=== PATIENT | female | born 1985 ===

== ENCOUNTER → 2019-09-30 | Outpatient (CLI) | payer BC | LOC: ZCOL.LAB 17:51 | DX: Z20.828 Contact with and (suspected) exposure to other viral communicable diseases (principal) ==

== ENCOUNTER 2021-03-19 12:57 | Outpatient (CLI) | payer BC ==
[2021-03-19 13:15] VITALS: BP 135/77; PULSE 81; TEMP 98.7
[2021-03-19 13:30] VITALS: BP 143/75; PULSE 82; TEMP 98.7
[2021-03-19] MEDS ORDERED: SYNTHROID0.05 MG/TA PO (13:39)
[2021-03-19] MEDS ORDERED: GLUCOPHAGE500 MG/TAB PO (13:39)
[2021-03-19] MEDS ORDERED: PHENERGAN 25 TA25 MG PO (13:39)
[2021-03-19 13:45] VITALS: BP 132/71; PULSE 88; TEMP 98.7
[2021-03-19 14:00] VITALS: BP 115/70; PULSE 74; TEMP 98.7
[2021-03-19 14:15] VITALS: BP 117/75; PULSE 78; TEMP 98.7
[2021-03-19 14:30] VITALS: BP 118/77; PULSE 75; TEMP 98.7
== END 2021-03-19 14:40 | disposition home or self-care (01) ==
LOC: EUO 12:57
DX: U07.1 COVID-19 (principal)
CPT/HCPCS: M0247; Q0247

== ENCOUNTER 2021-07-10 02:55 | Emergency (ER) | payer BC, OTHER ==
[~2021-07-10] VITALS: Ht 175.3 cm; Wt 90.9 kg
[~2021-07-10 02:55] MED LIST: GLUCOPHAGE500 MG/TAB PO; PHENERGAN 25 TA25 MG PO; SYNTHROID0.05 MG/TA PO
[2021-07-10 03:01] VITALS: TEMP 98.8
[2021-07-10 03:16] LABS: BASO % 0.4 % (0.0-2.0); EOS # 0.1 K/mm3 (0.0-0.7); EOS % 1.2 % (0.0-4.0); GRAN # 5.4 K/mm3 (1.4-6.5); GRAN % 58.5 % (42.2-75.2); HEMOGLOBIN 12.8 g/dl (12.5-16.0); LYMPH # 2.8 K/mm3 (1.2-3.4); LYMPH % 30.1 % (20.0-51.0); MEAN CELL VOLUME 81 fl (80.0-100.0); MEAN CORPUSCULAR HEMOGLOBIN 27 pg (27-31); MEAN CORPUSCULAR HGB CONC 34 g/dl (33.0-37.0); MEAN PLATELET VOLUME 10.6 fl (7.4-10.4); MONO # 0.9 K/mm3 (0.1-0.6); MONO % 9.5 % (1.7-9.3); PLATELET COUNT 303 K/mm3 (130-400); RED BLOOD COUNT 4.67 M/mm3 (4.10-5.30); REDCELL DISTRIBUTION WIDTH-CV 12.8 % (11.5-14.5)
[2021-07-10 03:46] LABS: ALANINE AMINOTRANSFERASE 23 U/L (0-55); ALBUMIN 4.2 gm/dL (3.5-5.0); ALKALINE PHOSPHATASE 89 U/L (40-150); ANION GAP 9 mmol/L (7-16); AST,SGOT 17 U/L (5-34); BILIRUBIN,TOTAL 0.3 mg/dL (0.2-1.2); CALCIUM 9.2 mg/dL (8.4-10.2); CARBON DIOXIDE 25 mmol/L (22-29); CHLORIDE 104 mmol/L (98-107); GLUCOSE 96 mg/dL (70-99); LIPASE 30 U/L (8-78); POTASSIUM 3.6 mmol/L (3.5-4.5); SODIUM 138 mmol/L (136-145); TOTAL PROTEIN 7.7 gm/dL (6.2-8.1)
[2021-07-10 03:47] LABS: BLOOD UREA NITROGEN 10 mg/dL (7-19)
[2021-07-10 03:53] LABS: TROPONIN-I < 0.010 ng/mL (0.00-0.033)
[2021-07-10 04:12] LABS: COLLECTION METHOD CLEAN CATCH
[2021-07-10 04:19] LABS: PH 6 (5-8); SQUAMOUS EPITHELIAL 0-2 /hpf (0-10); URINE APPEARANCE Clear (CLEAR/HAZY); URINE BACTERIA Rare /hpf (NONE SEEN); URINE BILIRUBIN Negative (NEGATIVE); URINE BLOOD 3+ (NEGATIVE); URINE COLOR Straw (YELLOW); URINE GLUCOSE Negative (NEGATIVE); URINE KETONE Negative (NEGATIVE); URINE LEUKOCYTE ESTERASE Negative (NEGATIVE); URINE NITRATE Negative (NEGATIVE); URINE PROTEIN(semi-quant) Negative (NEGATIVE); URINE RBC 20-50 /hpf (0-2); URINE UROBILINOGEN Negative (NEGATIVE)
[2021-07-10] MEDS ORDERED: PEPCID 20MG TAB20 MG PO (04:26)
[2021-07-10 04:39] VITALS: BP 126/81; PULSE 56
== END 2021-07-10 04:39 | disposition home or self-care (01) ==
LOC: COL.ER 02:55
PROVIDERS: Emergency Medicine
DX: R10.13 Epigastric pain (principal); Z28.311 Partially vaccinated for COVID-19; Z32.02 Encounter for pregnancy test, result negative

== ENCOUNTER → 2021-12-25 | Outpatient (CLI) | payer BC, OTHER ==
[~2021-12-25] MED LIST changes: +PEPCID 20MG TAB20 MG PO
== END ==
LOC: COL.LAB 11:50
DX: N91.5 Oligomenorrhea, unspecified (principal)

== ENCOUNTER 2023-04-07 20:45 | Emergency (ER) | payer BC ==
[~2023-04-07] VITALS: Ht 175.3 cm; Wt 102.3 kg
[2023-04-07 21:06] VITALS: TEMP 97.8
[2023-04-08 01:37] VITALS: BP 112/81; PULSE 80
== END 2023-04-08 01:37 | disposition home or self-care (01) ==
LOC: COL.ER 20:45
DX: O9A.211 Injury, poisoning and certain other consequences of external causes complicating pregnancy, first trimester (principal); S93.402A Sprain of unspecified ligament of left ankle, initial encounter; Z3A.01 Less than 8 weeks gestation of pregnancy; X50.1XXA Overexertion from prolonged static or awkward postures, initial encounter; W10.8XXA Fall (on) (from) other stairs and steps, initial encounter; Y93.01 Activity, walking, marching and hiking
CPT/HCPCS: L4386

== ENCOUNTER → 2023-05-05 | Outpatient (CLI) | payer BC | LOC: COL.RAD 07:15 | DX: I82.452 Acute embolism and thrombosis of left peroneal vein (principal) ==

== ENCOUNTER 2023-11-27 20:02 | Inpatient (IN) | payer BC ==
[~2023-11-27] VITALS: Ht 175.3 cm; Wt 120.5 kg
--- NOTE | 2023-11-27 20:20 | NUR ---
PT PRESENTS TO L&D WITH C/O HAVING A GUSH OF FLUID AFTER SHE STOOD UP FROM URINATING. DENIES VAG BLEEDING OR CONTRACTIONS. PT TO BED, NITRAZINE X 2 NEG. ROM TEST SENT TO LAB. SVE CLOSED/TK/HIGH/ POSTERIER,NOT ABLE TO FEEL PRESENTING PART.
[2023-11-27 20:30] VITALS: BP 126/79; PULSE 78; TEMP 97.9
[2023-11-27] MEDS ORDERED: LR 1,000 ML IV PRN (20:45)
[2023-11-27 21:30] VITALS: PULSE 82; TEMP 97.9
[2023-11-27] MEDS ORDERED: LR 1,000 ML IV SCH (22:15)
[2023-11-27] MEDS ORDERED: LR & Oxytocin 500 ML IV SCH ×2 (22:15)
[2023-11-27 22:30] VITALS: BP 120/78; PULSE 78
[2023-11-27] MEDS ORDERED: miSOPROStol 25 MCG (1/4th of 100 MCG) TAB VG SCH (22:30)
[2023-11-27 22:42] LABS: BASO % 0.2 % (0.0-2.0); EOS % 0.6 % (0.0-4.0); GRAN # 4.3 K/mm3 (1.4-6.5); GRAN % 67.8 % (42.2-75.2); HEMATOCRIT 37.3 % (37.0-47.0); HEMOGLOBIN 12.7 g/dl (12.5-16.0); LYMPH # 1.4 K/mm3 (1.2-3.4); LYMPH % 21.1 % (20.0-51.0); MEAN CELL VOLUME 83 fl (80.0-100.0); MEAN CORPUSCULAR HEMOGLOBIN 28 pg (27-31); MEAN CORPUSCULAR HGB CONC 34 g/dl (33.0-37.0); MEAN PLATELET VOLUME 11.4 fl (7.4-10.4); MONO # 0.6 K/mm3 (0.1-0.6); MONO % 9.4 % (1.7-9.3); PLATELET COUNT 237 K/mm3 (130-400); RED BLOOD COUNT 4.47 M/mm3 (4.10-5.30); REDCELL DISTRIBUTION WIDTH-CV 13.6 % (11.5-14.5)
[2023-11-27 23:00] VITALS: BP 140/78; PULSE 64
[2023-11-28] VITALS (60 sets, daily range): BP systolic 81–1125; BP diastolic 42–95; PULSE 51–101; TEMP 97.8–98.6
--- NOTE | 2023-11-28 03:00 | NUR ---
TIME FOR SECOND DOSE OF CYTOTEC. PT REQUESTS TO GO TO THE BR AND THEN AMB IN RUIZ FOR A LITTLE BIT. SHE STATES HER BACK IS HURTING FROM THE BED.
--- NOTE | 2023-11-28 03:28 | NUR ---
PT BACK FROM AMB. BACK TO BED, CYTOTEC PLACED. PILLOWS PLACED FOR COMFORT.
--- NOTE | 2023-11-28 06:00 | NUR ---
PT UP TO BR TO VOID, PT REQUESTS TO AMB IN RUIZ. STATES HER HIPS ARE HURTING FROM THE BED.
--- NOTE | 2023-11-28 07:00 | NUR ---
HEART TONE TRACING HAD DECELERATIONS AT 0652 AND 0659. DIFFICULT TO DETERMINE IF EARLY DECELERATIONS OR LATE DECELERATIONS DUE TO CONTRACTIONS NOT TRACING. TOCO HAS BEEN ADJUSTED. WILL CONTINUE TO MONITOR AND ADJUST NEEDED.
[2023-11-28] MEDS ORDERED: [UNRECOGNIZED DRUG - OTHER] (08:56)
--- NOTE | 2023-11-28 09:46 | NUR ---
DR. CANALES AT BEDSIDE, ULTRASOUNDS TO CONFIRM VERTEX PRESENTATION. DR. CANALES PERFORMS AROM AT 0946, CLEAR FLUID NOTED. SVE /3. DR. CANALES ORDERS A BLOOD SUGAR NOW DUE TO PT TAKING METFORMIN
--- NOTE | 2023-11-28 11:08 | NUR ---
AT BEDSIDE. EDUCATES PT ON FSE INSERTION, PT AGREES. DR. CANALES INSERTS FSE. SVE /-2
[2023-11-28] MEDS ORDERED: Ondansetron 4 MG/2 ML VIAL IV PRN (11:30)
[2023-11-28] MEDS ORDERED: diphenhydrAMINE 50 MG/ML 1 ML VIAL IV PRN (11:30)
[2023-11-28] MEDS ORDERED: ePHEDrine 50 MG/10 ML VIAL IV PRN (11:30)
[2023-11-28] MEDS ORDERED: diphenhydrAMINE 25 MG CAP PO PRN (11:30)
[2023-11-28] MEDS ORDERED: Naloxone 0.4 MG/ML VIAL IV PRN ×2 (11:30→22:30)
--- NOTE | 2023-11-28 11:46 | NUR ---
PT REQUESTS EPIDURAL. SASHA YE AT BEDSIDE FOR PLACEMENT, PT SITTING ON EDGE OF BED, LR BOLUS INFUSING. SINGLE SHOT GIVEN AT 1146 BY SASHA YE. PT TOLERATES PROCEDURE WELL. EPIDURAL HOOKED UP TO CONTINUOUS PUMP PER SASHA YE.
[2023-11-28] MEDS ORDERED: ROPivacaine PF 0.2% 200 ML IV ONE (11:55)
--- NOTE | 2023-11-28 13:13 | NUR ---
DR. CANALES AT BEDSIDE, DISCUSSES WITH PT ABOUT INSERTING AN IUPC, PT AGREES. IUPC INSERTED BY DR. CANALES. SVE /-2
--- NOTE | 2023-11-28 19:45 | NUR ---
pushing instructions given. Pt unable to feel ctx stating "I think I feel alittle pressure and my bck hurts"
--- NOTE | 2023-11-28 20:48 | NUR ---
Dr Lopes into room. Assess pushing, coaches. 2054 FSE off, New FSe placed by Dr Lopes. Pushing continues.
[2023-11-28] MEDS ORDERED: traZODone 50 MG TAB PO PRN (21:00)
--- NOTE | 2023-11-28 21:30 | NUR ---
pushing, . Dr Lopes continues in room, NSY and charge nurse in room. [address] Lopes. Baby to pt's chest. Pt keeps eyes closed and doesn't comment on baby. Father cuts cord, placed skin to skin with pt. 2139 Pt nauseated, throws up 300cc.
--- NOTE | 2023-11-28 21:44 | NUR ---
PLACENTA DELIVERS SPONT AND INTACT WITH 3 VESSELL CORD. Pitocin gtt to bolus rate. 2144 Heavy lochia flow, uterine massage/bimanual exam by Dr Gonzalez yields no clots, fundus cont boggy. 2146 cytotech 800mcg per rectum by Dr Gonzalez, for poor uterine tone. [address] Gonzalez with moderate amount conc urine. Bimanual exam and massage by Dr Gonzalez. 2151 Fundus firm lochia moderate without clots.
--- NOTE | 2023-11-28 22:00 | NUR ---
BP cuff not able to obtain BP r/t pt shaking and moving arm. Enc pt to try to hold arm still. 2210 Pt turning head side to side, eyes closed, shaking stating "my chest hurts. I'm having anxiety, I'm breathing too fast, can I have some medicine for anxiety?" Encouraged pt to take slow deep breaths. Pt states "I need something for my chest pain. the anxiety" 2214 [id number] P 67. Pt continues moving arm too much for BP. holding her hand and also moving arm. BP cuff reapplied. Encouraged to hold pt's arm still for BP. New BP cuff applied to lower forearm. Lochinitza Lopes @ L&D desk, informed of pt's complaint of chest pain. [address] into room to asist with pt cares. BP cuff re-adjusted 2224 pt states "I'm going to throw up" no emesis. Dr Lopes into room. 222 Zofran 4mg IV 2228 BP 81/42 P 69, SPO2 96. 2230 Ephedrine 10mg IV 2232 BP 121/72 P75 SPO2 95%. Dr Lopes leaves room and unit. 222 Pt nauseated. 2227 Zofran 4mg IVpush. 2228
[2023-11-28] MEDS ORDERED: Acetaminophen 500 MG TAB PO SCH (22:30)
[2023-11-28] MEDS ORDERED: Phenylephrine/Mineral Oil/Petrolatum 57 GM TUBE RC PRN (22:30)
[2023-11-28] MEDS ORDERED: Mag/Al Hydrox/Simeth Susp 30 ML CUP PO PRN (22:30)
[2023-11-28] MEDS ORDERED: Witch Hazel 50% Pads Bulk TUB TP PRN (22:30)
[2023-11-28] MEDS ORDERED: Ibuprofen 600 MG TAB PO SCH (22:30)
[2023-11-28] MEDS ORDERED: Loratadine 10 MG TAB PO PRN (22:30)
[2023-11-28] MEDS ORDERED: Magnes Hydrox (MOM) 80 MG/ML 30 ML CUP PO PRN (22:30)
[2023-11-28] MEDS ORDERED: oxyCODONE 5 MG TAB PO PRN (22:30)
[2023-11-28] MEDS ORDERED: Measles/Mumps/Rubella Virus Vaccine Live w Diluent 0.5 ML VIAL SQ SCH (22:30)
[2023-11-28] MEDS ORDERED: miSOPROStol 200 MCG TAB RC ONE (23:15)
[2023-11-29] VITALS (7 sets, daily range): BP systolic 103–123; BP diastolic 56–73; PULSE 62–100; TEMP 98–98.3
--- NOTE | 2023-11-29 01:00 | NUR ---
Pt able to bend knees but not lift hips off bed.
--- NOTE | 2023-11-29 02:00 | NUR ---
Up to bathroom with steady gait. Pt winces as she lifts her feet stating "it really hurts" To bathroom without difficulty. voids good amount performs own pericare after insturction. Pt has difficulty lifting feet to put panties on stating "it hurts too much" Perineum not swollen. To pp room via [employer].
--- NOTE | 2023-11-29 03:00 | NUR ---
Oriented to room, call light. Pt instructed to not get out of bed without staff assist. Verbalizes understanding
[2023-11-29 05:15] LABS: BASO % 0.2 % (0.0-2.0); GRAN # 13.7 K/mm3 (1.4-6.5); GRAN % 84.6 % (42.2-75.2); LYMPH # 1.1 K/mm3 (1.2-3.4); LYMPH % 6.9 % (20.0-51.0); MEAN CELL VOLUME 82 fl (80.0-100.0); MEAN CORPUSCULAR HGB CONC 34 g/dl (33.0-37.0); MONO # 1.3 K/mm3 (0.1-0.6); MONO % 7.9 % (1.7-9.3); PLATELET COUNT 196 K/mm3 (130-400); RED BLOOD COUNT 3.63 M/mm3 (4.10-5.30); REDCELL DISTRIBUTION WIDTH-CV 13.7 % (11.5-14.5)
[2023-11-29 05:16] LABS: HEMATOCRIT 29.9 % (37.0-47.0); HEMOGLOBIN 10.2 g/dl (12.5-16.0); MEAN CORPUSCULAR HEMOGLOBIN 28 pg (27-31)
[2023-11-29] MEDS ORDERED: Ferrous Sulfate 325 MG TAB PO SCH (08:00)
[2023-11-29] MEDS ORDERED: Sennosides/Docusate 8.6-50 MG TAB PO SCH (08:00)
--- NOTE | 2023-11-29 15:39 | NUR ---
THE PT HAS EXPRESSED THAT THEY WOULD LIKE TO DISCHARGE SOON POSSIBLE.THIS RN INFORMED THE PT AND SIGINIFICANT OTHER OF COMPLETION OF THE 24 HOUR SCREEN,THE CERTIFICATE, WELL THE EDUCATIONAL VIDEOS THAT NEED TO BE COMPLETED PRIOR TO LEAVING.THE PT AND SIGNIFICANT OTHER VERBALIZE UNDERSTANDING.THIS RN INFORMS THE PT AND SIGNIFICANT OTHER THAT IT MAY BE 11PM OR SLIGHTLY LATER UNTIL THOSE SCREEN RESULTS COME BACK AND THEY CAN DISCHARGE.PT VERBALIZES UNDERTSTANDING.
[2023-11-29] MEDS ORDERED: metFORMIN XR 500 MG TAB PO SCH (17:00)
--- NOTE | 2023-11-29 19:00 | NUR ---
ATTEMPTED TO LATCH BABY TO BRST. HAND PUMP GIVEN AND DEMONSTRATED. UNDERSTANDING VOICE. ENCOURAGE PT TO CALL [facility]- TOMORROW AND TO ATTEND [facility] ON AND THURSDAY
--- NOTE | 2023-11-29 22:30 | NUR ---
DISCHARGE TEACHING REVIEWED WITH PT AND - UNDERSTANDING VOICED- NO QUESTIONS ABOUT QR CODES THAT THEY WATCHED- ENCOURAGED MOM TO CALL IF SHE HAD ANY QUESTIONS OR CONCERNS. ENCOURGED MOM TO FEED BABY WHEN SHE GETS HOME. UNDERSTANDING VOICED. PT REQUESTS WHEELCHAIR AND IS TAKEN OFF UNIT BY STAFF - DAD IS HOLDING BABY SECURED IN [place]
== END 2023-11-29 22:53 | disposition home or self-care (01) | DRG 805 ==
LOC: LDRO 20:02 → LDR 22:11 → OB 11-29
PROVIDERS: Obstetrics & Gynecology; ADMIT Obstetrics & Gynecology
PROC: 10E0XZZ Delivery of Products of Conception, External Approach (ICD-10-PCS; principal; 2023-11-28)
PROC: 0KQM0ZZ Repair Perineum Muscle, Open Approach (ICD-10-PCS; 2023-11-28)
PROC: 3E0P7VZ Introduction of Hormone into Female Reproductive, Via Natural or Artificial Opening (ICD-10-PCS; 2023-11-28)
DX: O48.0 Post-term pregnancy (principal); O24.12 Pre-existing type 2 diabetes mellitus, in childbirth; Z37.0 Single live birth; O72.1 Other immediate postpartum hemorrhage; O99.214 Obesity complicating childbirth; O99.284 Endocrine, nutritional and metabolic diseases complicating childbirth; E11.9 Type 2 diabetes mellitus without complications; E03.9 Hypothyroidism, unspecified; O76 Abnormality in fetal heart rate and rhythm complicating labor and delivery; O70.1 Second degree perineal laceration during delivery; Z3A.40 40 weeks gestation of pregnancy; Z79.890 Hormone replacement therapy; Z86.718 Personal history of other venous thrombosis and embolism; Z79.84 Long term (current) use of oral hypoglycemic drugs; Z91.148 Patient's other noncompliance with medication regimen for other reason; Z23 Encounter for immunization
CPT/HCPCS: J1650; J2405; J2590; J2795; J7120